=== PATIENT | male | born 1995 | race African-American/Black ===

== ENCOUNTER 2017-06-24 13:01 | Emergency (ER) | payer SELFPAY ==
[~2017-06-24] VITALS: Ht 170.2 cm; Wt 70.2 kg
[~2017-06-24 13:01] MED LIST: ALBU1AER9 INH; AMPH25CA PO; DEXT1CAP PO; IBUP-1050 PO
[2017-06-24 13:02] VITALS: Ht 170.2 cm; Wt 70.2 kg
[2017-06-24] MEDS ORDERED: ALBUT/IPRATROP 3MG/0.5MG NEB 3 ML VIAL INH STA (13:13)
[2017-06-24] MEDS ORDERED: ALBUTEROL HFA 8 GM INHALER INH STA (13:13)
[2017-06-24] MEDS ORDERED: AZITHROMYCIN 250 MG TAB PO STA (13:32)
[2017-06-24] MEDS ORDERED: AZIT-60 PO ×2 (13:34→14:58)
--- NOTE | 2017-06-24 13:36 | EMERGENCY ROOM VISIT NOTE ---
History First contact with patient: 13:06 Chief Complaint: COUGH Stated Complaint: BRONCHITIS SYMPTOMS Nursing Triage Summary: Pt believes he has bronchitis, deep cough, brownish/yellow mucus x 2 weeks. History of Present Illness The patient is a 22 year old male who presents to the Emergency Room with complaints of "bronchitis symptoms". The patient states that the past 2 weeks he has had a stuffy nose, cough postnasal drip and yellow mucus from the cough. He states that last night it was difficult breathing/sleeping secondary to his cough. He states that it is now yellow/brown mucus. He has a history of asthma. He denies any history of heart attack or blood clots. He notes that he quit smoking in the past. He denies any leg swelling, hemoptysis, recent trauma or surgery, prior PE or DVT, or hormone use. Review of Systems A complete 6-point Review of Systems was discussed with the patient, with pertinent positives and negatives listed in the History of Present Illness. All remaining Review of Systems questions can be considered negative unless otherwise specified. Past Medical/Surgical History Medical Problems: (1) Asthma (2) Attention deficit hyperactivity disorder (3) Mononucleosis Family History Diabetes mellitus FH: cancer Seizures Social History Smoking Status: Former Smoker Alcohol Use: none Marital Status: single Housing Status: lives with family Occupation Status: employed, student Current/Historical Medications Scheduled Albuterol Hfa (Ventolin Hfa), 1-2 PUFFS INH Q6H Amphetamine-Dextroamphetamine 25MG (Adderall Xr 25MG), 25 MG PO DAILY Azithromycin (Zithromax), 250 MG PO DAILY Azithromycin (Zithromax), 250 MG PO DAILY Scheduled PRN Albuterol Sulfate (Proventil Hfa), 2 PUFFS INH Q4H PRN for SOB/Wheezing Xvevvwghgfsbnkhh-Ipsyuaitwv-Zq (Nite-Time Cold/Flu), 2 CAP PO HS PRN for Cough Ibuprofen (Advil), 400 MG PO BID PRN for Pain Physical Exam Vital Signs Date Time Temp Pulse Resp B/P (MAP) Pulse Ox O2 Delivery O2 Flow Rate FiO2 06/24/17 14:23 36.7 95 18 122/82 97 06/24/17 13:04 97 Room Air 06/24/17 13:02 36.7 95 18 115/78 97 Room Air Physical Exam VITAL SIGNS - Vital signs and nursing notes were reviewed. Stable. Afebrile, normotensive, non-tachycardic and is saturating well on room air at 97%. GENERAL -22-year-old male appearing his stated age who is in no acute distress. Communicates well with provider and answers questions appropriately. SKIN - Without rashes. No petechial rashes. HEAD - NC/AT. EYES -Sclera anicteric. EARS - No deformities of external structures noted on gross examination bilaterally. No pain elicited with palpation of the tragus bilaterally. External auditory canals without discharge or otorrhea. Tympanic membranes pearly cao without retraction or bulging. No fluid or purulent material visualized behind the TM. Handle of malleus, umbo, cone of light, pars tensa/ flaccid all easily visualized. NOSE - Midline and without cyanosis. No epistaxis or purulent drainage noted. MOUTH/OROPHARYNX - Without perioral cyanosis. Buccal mucosa pink and moist and without leukoplakia. Tongue midline with equal elevation of palate bilaterally. No tonsillar hypertrophy, erythema, or exudates noted. Fair dentition noted. NECK - Neck with FROM. No meningismus. LUNGS - Chest wall symmetric without accessory muscle use, intercostals retractions, or central cyanosis. Normal vesicular breath sounds CTA B/L. No wheezes, rales, or rhonchi appreciated. CARDIAC - RRR with S1/S2. No murmur, rubs, or gallops appreciated. Medical Decision & Procedures Medications Administered Medications (Trade) Dose Ordered Sig/Sd Route Start Time Stop Time Status Last Admin Dose Admin Albuterol/ Ipratropium (Duoneb) 3 ml NOW STAT INH 06/24/17 13:13 06/24/17 13:14 DC 06/24/17 13:44 3 ML Albuterol (Ventolin Hfa Inhaler) 1 puffs NOW STAT INH 06/24/17 13:13 06/24/17 13:14 DC 06/24/17 13:45 1 PUFFS Azithromycin (Zithromax Tab) 500 mg NOW STAT PO 06/24/17 13:32 06/24/17 13:33 DC 06/24/17 13:44 500 MG Medical Decision Patient was seen and evaluated as above. He presents to us today with symptoms of a viral URI. He is well on exam. He is PERC rule negative. I do not suspect NV or PE. I offered a chest x-ray to evaluate for pneumonia and he declined. He is concerned about the cost of today's visit. He was given a DuoNeb and notes that he was able to cough up more of the sputum. Vital signs are stable. I believe he likely has what initially started as a viral bronchitis over due to its duration will this time initiated antibiotics. He is also pressured by his workplace to be on antibiotics that he may return to work to fill his employment. At this time I will provide him with azithromycin , as well as an albuterol inhaler. He was educated upon management, educated upon use, had questions prior to discharge, and was discharged home in good condition. In evaluation treatment this patient following differential diagnoses were entertained: Viral bronchitis, bacterial bronchitis, NV, PE, among others. Impression Primary Impression: Cough Additional Impression: Bronchitis Departure Information Dispostion Home / Self-Care Condition GOOD Prescriptions Azithromycin (ZITHROMAX) 250 Mg Tab 250 MG PO DAILY, #4 TAB Prov: Pierre Mirza PA-C 06/24/17 Albuterol Hfa (VENTOLIN HFA) 200 Puffs/52687 Mcg Aers 1-2 PUFFS INH Q6H, #1 INHALER Prov: Pierre Mirza PA-C 06/24/17 Referrals No Doctor, Assigned (PCP) Patient Instructions ED Bronchitis Asthmatic, My [facility] Additional Instructions You were seen in the emergency department for your cough and congestion. You were prescribed Azithromycin to be taken every day for 4 more days, beginning tomorrow at 2 pm. This is an antibiotic. All antibiotics have the potential to cause diarrhea. Stop this medication and contact a medical provider if you were to develop any significant adverse side effects including: wheezing, shortness of breath, passing out, vomiting, or a diffuse rash. Always take antibiotics as directed and COMPLETE the ENTIRE course regardless of the improvement of your symptoms. I encourage using albuterol inhaler. 1-2 puffs every 4-6 hours as needed. For pain and fever control, you can use the following cyoo-xvn-sjsklcr medicines (if >12 yo): - Regular strength (325mg/tab) Tylenol (acetaminophen) 2 tabs every 4-6 hours as needed. Do not exceed 12 tablets in a 24 hour period. Avoid taking more than 3 grams (3000 mg) of Tylenol per day. This includes any other sources of acetaminophen you may take on a regular basis. - Regular strength (200 mg/tab) Advil (ibuprofen) 1-2 tabs every 4-6 hours as needed. Do not exceed a dose of 3200 mg per day. - For best results, alternate dosing of Tylenol and Advil. In addition to your prescribed medications, you can also use the following home remedies: Warm drinks to help soothe the throat. And warm compresses to chest. Please return with any new/concerning symptoms. Follow up with your primary care provider in 2-3 days from today's emergency department visit. Problem Qualifiers
[2017-06-24] MEDS ORDERED: ALBUAER INH (13:40)
[2017-06-24] MEDS ORDERED: AZIT250T PO (14:05)
[2017-06-24] MEDS ORDERED: VNTHFA/IN INH (14:11)
[2017-06-24 14:23] VITALS: BP 122/82; PULSE 95; TEMP 36.7; O2SAT 97
== END 2017-06-24 14:25 | disposition home or self-care (01) ==
LOC: C.EDB 13:01
DX: J40 Bronchitis, not specified as acute or chronic (principal); Z87.891 Personal history of nicotine dependence; F90.9 Attention-deficit hyperactivity disorder, unspecified type; Z83.3 Family history of diabetes mellitus; Z80.9 Family history of malignant neoplasm, unspecified; Z82.0 Family history of epilepsy and other diseases of the nervous system; Z79.899 Other long term (current) drug therapy

== ENCOUNTER 2017-10-08 13:42 | Emergency (ER) | payer SELFPAY ==
[~2017-10-08] VITALS: Ht 170.2 cm; Wt 68.2 kg
[~2017-10-08 13:42] MED LIST changes: -ALBU1AER9 INH; +ALBUAER INH; +AZIT250T PO; -IBUP-1050 PO; +VNTHFA/IN INH
[2017-10-08 13:51] VITALS: TEMP 36.9; Ht 170.2 cm; Wt 68.2 kg
[2017-10-08] MEDS ORDERED: IBUP-1050 PO (14:05)
--- NOTE | 2017-10-08 14:11 | EMERGENCY ROOM VISIT NOTE ---
History Report prepared by Vale: Kameron Coronel Under the Supervision of: Dr. Jimi Moseley M.D. First contact with patient: 13:53 Chief Complaint: SHORTNESS OF BREATH Stated Complaint: HARD TO BREATHE, BACK SPASM/PAIN Nursing Triage Summary: Pt states, "I woke up and I couldn't sit up. I had pain under my right shoulder blade and it's hard to breathe. It's been bothering me for the past 2-3 days. It hurts to stand. I have a cold and it's in my throat. It hurts so bad when I cough." Denies lightheaded or leg pain. History of Present Illness The patient is a 22 year old male who presents to the Emergency Room with complaints of constant back pain for the past three days that is worse with a deep breath. He notes that he coughed this morning, and the pain shot down his back, and he states that it is a little bit difficult to breathe due to the pain. The patient states that he has been working out lifting weights recently and thinks this may have caused the pain, though he states that he has not had any traumas. He denies any abdominal pain, recent long travels, hemoptysis, and steroid use. The patient states that he has been coughing up yellow mucous. He denies any other medical problems, and he does not take any medications other than ibuprofen which has helped a little bit. Source of History: patient Onset: three days ago Position: back Timing: constant Modifying Factors (Worsening): breathing, other (coughing) Associated Symptoms: + cough, No abdominal pain Review of Systems See HPI for pertinent positives and negatives. A total of ten systems were reviewed and were otherwise negative. Past Medical & Surgical Medical Problems: (1) Asthma (2) Attention deficit hyperactivity disorder (3) Mononucleosis Family History Diabetes mellitus FH: cancer Seizures Social History Smoking Status: Current Every Day Smoker Alcohol Use: none Marital Status: single Housing Status: lives with family Occupation Status: employed, student Current/Historical Medications Scheduled Cyclobenzaprine Hcl (Flexeril), 5 MG PO TID Scheduled PRN Ibuprofen (Advil), 400 MG PO UD PRN for Pain Ibuprofen Tab (Motrin), 800 MG PO Q8H PRN for Pain Allergies Coded Allergies: Cat Dander (Verified Allergy, Unknown, unk, 06/24/17) Dog Dander (Verified Allergy, Unknown, unk, 06/24/17) Dust Mite Extract (Verified Allergy, Unknown, unk, 06/24/17) Horse Dander (Verified Allergy, Unknown, unk, 06/24/17) Molds and Smuts (Verified Allergy, Unknown, unk, 06/24/17) POLLEN (Verified Allergy, Unknown, unk, 06/24/17) Uncoded Allergies: NKDA (Allergy, Mild, 06/04/07) TREES (Allergy, Unknown, unk, 11/01/13) Physical Exam Vital Signs Date Time Temp Pulse Resp B/P (MAP) Pulse Ox O2 Delivery O2 Flow Rate FiO2 10/08/17 15:27 90 17 114/77 99 Room Air 10/08/17 13:51 36.9 106 20 119/75 98 Room Air Physical Exam Physical Exam GENERAL: He is oriented to person, place, and time. He appears well-developed and well-nourished. He does not appear distressed. ____ HENT: Exam performed. Head: Normocephalic and atraumatic. Right Ear: External ear normal. No mastoid tenderness. Left Ear: External ear normal. No mastoid tenderness. Mouth/Throat: The oropharynx is clear and moist. No trismus in the jaw. No dental abscesses or uvula swelling. No oropharyngeal exudate or tonsillar abscesses. ____ EYES: Conjunctivae and EOM are normal. Pupils are equal, round, and reactive to light. Right eye exhibits no discharge. Left eye exhibits no discharge. No scleral icterus. ____ NECK: Normal range of motion. Neck supple. No JVD present. No spinous process tenderness present. No carotid bruit present. No rigidity. No tracheal deviation and normal range of motion present. No Brudzinski's sign and no Kernig 's sign noted. ____ CV: Normal rate, regular rhythm, normal heart sounds and intact distal pulses. There is no peripheral edema. Palpable radial pulses bue. ____ PULM/CHEST: Effort normal and breath sounds normal. No respiratory distress. No stridor. He has no wheezes. He has no rales. Chest Wall: He exhibits no tenderness. ____ ABD: The abdomen is soft. Bowel sounds are normal. He has no distension. No mass is present. There is no tenderness. There is no rebound, no guarding, no Dudley's sign and no tenderness at McBurney's point. Rovsig negative MUSC/SKEL: Pain reproducing the chief complaint with pain on palpation throughout the paraspinal thoracic muscles. No C, T, or L spine tenderness. Normal range of motion. There is no peripheral edema, tenderness or deformity. _ LYMPH: No cervical adenopathy. ____ NEURO: He is alert and oriented to person, place, and time. He has normal strength. No cranial nerve deficit or sensory deficit. Coordination and gait normal. GCS eye subscore is 4. GCS verbal subscore is 5. GCS motor subscore is 6. Cerebellar tests wnl. ____ SKIN: Skin is warm and dry. He is not diaphoretic. ____ PSYCH: He has a normal mood and affect. His behavior is normal. Judgment and thought content normal. ____ Medical Decision & Procedures ER Provider Diagnostic Interpretation: Radiology results as stated below per my review and radiologist interpretation: CHEST 2 VIEWS ROUTINE CLINICAL HISTORY: Inspiratory chest pain COMPARISON STUDY: November 27, 2014 FINDINGS: The cardiac and mediastinal contours are normal. There is no evidence of focal pulmonary consolidation. There is no evidence of failure. No pleural effusions are visualized.[ IMPRESSION: No active disease in the chest. Electronically signed by: Kevin Onofre M.D. 10/08/2017 2:16 PM Dictated Date/Time: 10/08/2017 2:15 PM Medications Administered Medications (Trade) Dose Ordered Sig/Sd Route Start Time Stop Time Status Last Admin Dose Admin Cyclobenzaprine HCl (Flexeril Tab) 5 mg NOW STAT PO 10/08/17 15:17 10/08/17 15:20 DC 10/08/17 15:27 5 MG Ibuprofen (Motrin Tab) 600 mg NOW STAT PO 10/08/17 15:17 10/08/17 15:20 DC 10/08/17 15:27 600 MG ED Course 1353: The patient was evaluated in room A10. A complete history and physical exam was performed. 1511: VSS. Imaging is with normal limits. No PE risk factors. Based off the HPI and exam it was consistent with musculoskeletal back strain. He will be discharged with an analgesic and muscle relaxer. He states that he is not driving home, and his friend at the bedside will drive him. DISCHARGE - Plan of care discussed with patient and questions answered. The patient was given both verbal and printed discharge instructions. The patient verbalized understanding and ability to comply. The patient is to seek outpatient follow up as noted in the discharge instructions. The patient verbalized understanding and ability to comply. The patient is discharged in stable condition. The patient was instructed to return for worsening symptoms. 1517: Motrin 600mg PO and Flexeril 5mg PO Medical Decision VSS. Imaging is with normal limits. No PE risk factors. Based off the HPI and exam it was consistent with musculoskeletal back strain. He will be discharged with an analgesic and muscle relaxer. He states that he is not driving home, and his friend at the bedside will drive him. DISCHARGE - Plan of care discussed with patient and questions answered. The patient was given both verbal and printed discharge instructions. The patient verbalized understanding and ability to comply. The patient is to seek outpatient follow up as noted in the discharge instructions. The patient verbalized understanding and ability to comply. The patient is discharged in stable condition. The patient was instructed to return for worsening symptoms. Medication Reconcilliation Current Medication List: was personally reviewed by me Blood Pressure Screening Patient's blood pressure: Normal blood pressure Impression Primary Impression: Muscle strain Scribe Attestation The scribe's documentation has been prepared under my direction and personally reviewed by me in its entirety. I confirm that the note above accurately reflects all work, treatment, procedures, and medical decision making performed by me. The chart was completed utilizing [employer] Speech voice recognition software. Grammatical errors, random word insertions, pronoun errors, and incomplete sentences are an occasional consequence of this system due to software limitations, ambient noise, and hardware issues. Any formal questions or concerns about the content, text, or information contained within the body of this dictation should be directly addressed to the physician for clarification. Departure Information Dispostion Home / Self-Care Prescriptions Cyclobenzaprine Hcl (FLEXERIL) 5 Mg Tab 5 MG PO TID for Pain for 7 Days, #21 TAB PRN Prov: Jimi Moseley M.D. 10/08/17 Ibuprofen Tab (MOTRIN) 800 Mg Tab 800 MG PO Q8H Y for Pain, #30 TAB Prov: Jimi Moseley M.D. 10/08/17 Referrals No Doctor, Assigned (PCP) Forms HOME CARE DOCUMENTATION FORM, IMPORTANT VISIT INFORMATION Patient Instructions [facility]
--- NOTE | 2017-10-08 14:17 | DIAGNOSTIC IMAGING REPORT ---
CHEST 2 VIEWS ROUTINE CLINICAL HISTORY: Inspiratory chest pain COMPARISON STUDY: November 27, 2014 FINDINGS: The cardiac and mediastinal contours are normal. There is no evidence of focal pulmonary consolidation. There is no evidence of failure. No pleural effusions are visualized.[ IMPRESSION: No active disease in the chest. Electronically signed by: Kevin Onofre M.D. 10/08/2017 2:16 PM Dictated Date/Time: 10/08/2017 2:15 PM
[2017-10-08] MEDS ORDERED: IBUP-1451 PO (15:16)
[2017-10-08] MEDS ORDERED: CYCLOBENZAPRINE HCL 5 MG TAB PO STA (15:17)
[2017-10-08] MEDS ORDERED: IBUPROFEN 600 MG TAB PO STA (15:17)
[2017-10-08] MEDS ORDERED: CYCL5TAB PO (15:17)
[2017-10-08 15:27] VITALS: BP 114/77; PULSE 90; O2SAT 99
== END 2017-10-08 15:38 | disposition home or self-care (01) ==
LOC: C.EDB 13:44 → C.EDA 15:38
DX: S39.012A Strain of muscle, fascia and tendon of lower back, initial encounter (principal); X58.XXXA Exposure to other specified factors, initial encounter; J45.909 Unspecified asthma, uncomplicated; F90.9 Attention-deficit hyperactivity disorder, unspecified type; F17.210 Nicotine dependence, cigarettes, uncomplicated; Z83.3 Family history of diabetes mellitus; Z80.9 Family history of malignant neoplasm, unspecified; Z82.0 Family history of epilepsy and other diseases of the nervous system; Z91.048 Other nonmedicinal substance allergy status

== ENCOUNTER 2018-03-08 03:43 | Emergency (ER) | payer OTHER ==
[~2018-03-08] VITALS: Ht 170.2 cm; Wt 67.4 kg
[~2018-03-08 03:43] MED LIST changes: -ALBUAER INH; -AMPH25CA PO; -AZIT250T PO; -DEXT1CAP PO; +IBUP-1050 PO; +IBUP-1451 PO; -VNTHFA/IN INH
[2018-03-08 03:44] VITALS: TEMP 36.8; Ht 170.2 cm; Wt 67.4 kg
[2018-03-08] MEDS ORDERED: LIDOCAINE 1% BUFFERED INJ 20 ML VIAL INFIL ONE (04:15)
[2018-03-08 05:04] VITALS: BP 122/75; PULSE 100; O2SAT 97
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
== END 2018-03-08 05:05 | disposition home or self-care (01) ==
LOC: C.EDB 03:44
DX: S01.511A Laceration without foreign body of lip, initial encounter (principal); S02.5XXA Fracture of tooth (traumatic), initial encounter for closed fracture; Y04.0XXA Assault by unarmed brawl or fight, initial encounter; F17.200 Nicotine dependence, unspecified, uncomplicated

== ENCOUNTER 2024-05-31 08:00 | Observation (INO) ==
[2024-05-31 08:53] LABS: Basophils # (auto) 0.05 K/uL (0.00-0.20); Basophils % (auto) 0.7 %; Eosinophils # (auto) 0.12 K/uL (0.00-0.50); Eosinophils % (auto) 1.8 %; Hematocrit (blood only) 43.5 % (42.0-52.0); Hemoglobin 15.3 g/dl (14.0-18.0); Immature Granulocytes # (auto) 0.01 K/uL (0.01-0.20); Immature Granulocytes % (auto) 0.1 %; Lymphocytes # (auto) 2.15 K/uL (1.20-3.40); Lymphocytes % (auto) 31.6 %; Mean Corpuscular Hemoglobin 32.8 pg (25.0-34.0); Mean Corpuscular Hgb Conc 35.2 g/dL (32.0-36.0); Mean Corpuscular Volume 93.1 fL (80.0-100.0); Mean Platelet Volume 9.1 fL (9.4-12.4); Monocytes # (auto) 0.84 K/uL (0.11-0.59); Monocytes % (auto) 12.3 %; Neutrophils # (auto) 3.64 K/uL (1.40-6.50); Neutrophils % (auto) 53.5 %; Platelet Count 274 K/uL (130-400); RDW Standard Deviation 44.5 fL (36.4-46.3); Red Blood Count 4.67 M/uL (4.70-6.10); White Blood Count 6.81 K/ul (4.8-10.8)
[2024-05-31 09:05] LABS: BUN Creatinine Ratio 6.6 (10-20); Bilirubin Direct 0.2 mg/dl (0-0.2); Bilirubin,Total 0.7 mg/dl (0.2-1.0); Calcium 9.7 mg/dl (8.6-10.3); Creatinine Clr Calc Pharmacy 130.6 ml/min; Potassium 3.2 mmol/L (3.5-5.1); Total Protein 8.3 gm/dl (6.0-8.3)
[2024-05-31] MEDS: diazePAM 5 MG/ML 10ML VIAL IV STA (09:24)
--- NOTE | 2024-05-31 09:39 | Emergency Department Note ---
Impression & Plan Alcohol withdrawal, Hypokalemia ED Provider Note NAME: MIGUEL ENGEL AGE: 29 SEX: M : 1995 ARRIVES VIA: Ambulance INFORMANT: Patient, ED PROVIDER(S): North Finn MD CHIEF COMPLAINT: Alcohol withdrawal HPI: This is an 29-year-old male present for possible alcohol withdrawal. Patient notes that he drinks daily about one third of a bottle of vodka with numerous beers throughout the day. He is on this for multiple years at a time. He has never had any alcohol withdrawal seizures. Does note that he gets shaky, nauseous although he does stop. He notes he feels very unwell at this time. He reports no chest pain, fever or chills. ROS: See above HPI for pertinent positives & negatives. A total of 10 systems reviewed and were otherwise negative. PAST MEDICAL HISTORY: See Below PAST SURGICAL HISTORY: See Below FAMILY HISTORY: See Below SOCIAL HISTORY: See Below HOME MEDICATIONS: See Below ALLERGIES: See Below VITALS: See Below PHYSICAL EXAMINATION: General: resting comfortably in no acute distress, tremulous Head: Normocephalic and atraumatic Eyes: Normal inspection, extraocular muscles intact Ear, nose, throat: Normal external exam Neck: Normal range of motion Respiratory: lungs clear to auscultation bilaterally Cardiovascular: Regular rate/rhythm, no murmur GI: soft, nontender, no guarding or rebound Extremities: nontender, moves all extremities Neuro: The patient awake and alert, appropriately conversive, no focal deficits, symmetric faces Skin: Warm, dry, and intact MEDICAL DECISION MAKING: This is a 29-year-old male presenting for possible alcohol withdrawal. We do screening blood work, patient tachycardic initially to the 130s. Now 100s. Will give Valium. -Patient alcohol level is elevated at 63. Otherwise hypokalemia is noted with normal blood work. His transaminitis is noted in alcoholic pattern. -Patient is tremulous, mildly tachycardic still. Will require admission. Detox -Patient is currently comfortable for admission. Admit under Dr. Melgar Differential diagnosis: Alcohol withdrawal, anxiety, delirium tremens, alcoholic seizure ER treatment provided: Diagnostics interpreted by me: ECG: ECG independently interpreted by me with normal sinus rhythm, rate of 96, normal axis, normal MS, normal QRS, normal QTc, no ST segment elevations consistent with STEMI criteria Cardiac Monitoring: An order was placed for continuous cardiac monitoring. The monitor shows a rate of with rhythm. Laboratory studies: As stated above and show below. Imaging studies: See below. Past Med/Surg History Problem List (Updated 05/31/24 @ 15:43 by North Finn MD) Hypokalemia (Acute) Alcohol withdrawal (Acute) Abnormal LFTs Medical History (Updated 05/31/24 @ 15:43 by North Finn MD) Alcohol use disorder Asthma Surgical History No significant past surgical history Family History Other Epilepsy Stroke Social History (Updated 05/31/24 @ 12:43 by Calista Jones PA-C) Smoking Status: Current every day smoker Tobacco Type: E-cigarettes / Vaping Second Hand Exposure: Yes; Do You Dip or Chew Tobacco: No; Tobacco Cessation Education Requested by Patient: No Hx Alcohol Use: Yes Alcohol type: beer and hard liquor Alcohol Intake Frequency: 4 or More x per/Week Hx Substance Use: Yes Non-Prescribed Medications: Marijuana Substance Use Type Other:: medical marijuana Preferred Language: Irish Communication Ability: Effective Diving Fisher Required: No Beliefs That Will Affect Care: None marital status: Single Current Living Situation: Parent Current Living Situation Comment: lives with mother current occupational status: employed Other Information That Helps Us Care for You: No Feels Safe at Home: Yes Safety Concerns: Feels Safe At This Time Assistive Devices: Glasses Allergies Allergies Allergy/AdvReac Type Severity Reaction Status Date / Time cat dander Allergy Unknown unk Verified 11/14/18 05:16 dog dander Allergy Unknown unk Verified 11/14/18 05:16 horse dander Allergy Unknown unk Verified 11/14/18 05:16 mold Allergy Unknown unk Verified 11/14/18 05:16 pollen extracts Allergy Unknown unk Verified 11/14/18 05:16 [id number] Allergy Mild Unknown Uncoded 11/14/18 05:16 Dust Mite Extract Allergy Unknown unk Uncoded 11/14/18 05:16 TREES Allergy Unknown unk Uncoded 11/14/18 05:16 Home Meds Home Medications Medication Instructions Recorded Confirmed clonidine HCl 0.1 mg tablet 0.1 mg PO TID PRN anxiety/insomina 05/31/24 05/31/24 naltrexone 50 mg tablet 50 mg PO DAILY 05/31/24 05/31/24 Previous Rx's Medication Instructions Recorded ondansetron 4 mg disintegrating 4 mg PO Q6H PRN nausea and 02/14/19 tablet vomiting #10 tabs Results & Data (ED) Vital Signs Vital Signs - 24 hr 05/31/24 08:01 05/31/24 08:24 05/31/24 08:44 Temperature 36.8 C Temperature Source Oral Pulse Rate 87 100 H 132 H Pulse Rate from SpO2 Sensor 95 H Respiratory Rate 16 16 Respiratory Effort / Characteristics Non-Labored Spontaneous Respiratory Depth Normal Blood Pressure 137/98 115/70 Blood Pressure Mean 111 85 Pulse Oximetry 99 98 Oxygen Delivery Method Room Air Oxygen Flow Rate Sepsis Recent Fever Within 48 Hours No Sepsis New/Unexplained Change in Mental Status No Sepsis Action Taken by Nursing No Action Required 05/31/24 08:45 05/31/24 08:57 05/31/24 09:03 Temperature Temperature Source Pulse Rate 99 H 86 80 Pulse Rate from SpO2 Sensor 99 H 87 83 Respiratory Rate 21 14 13 Respiratory Effort / Characteristics Respiratory Depth Blood Pressure 130/81 Blood Pressure Mean 97 Pulse Oximetry 98 97 97 Oxygen Delivery Method Nasal Cannula Oxygen Flow Rate 2 Sepsis Recent Fever Within 48 Hours Sepsis New/Unexplained Change in Mental Status Sepsis Action Taken by Nursing 05/31/24 10:00 Temperature Temperature Source Pulse Rate 93 H Pulse Rate from SpO2 Sensor Respiratory Rate 18 Respiratory Effort / Characteristics Respiratory Depth Blood Pressure 120/85 Blood Pressure Mean 98 Pulse Oximetry 99 Oxygen Delivery Method Nasal Cannula Oxygen Flow Rate 2 Sepsis Recent Fever Within 48 Hours Sepsis New/Unexplained Change in Mental Status Sepsis Action Taken by Nursing Laboratory Data 05/31/24 08:13 05/31/24 08:13 Lab Results 05/31/24 Range/Units 08:13 WBC 6.81 (4.8-10.8) K/ul RBC 4.67 L (4.70-6.10) M/uL Hgb 15.3 (14.0-18.0) g/dl Hct 43.5 (42.0-52.0) % MCV 93.1 (80.0-100.0) fL MCH 32.8 (25.0-34.0) pg MCHC 35.2 (32.0-36.0) g/dL RDW Std Deviation 44.5 (36.4-46.3) fL RDW Coeff of Elizabeth 13.0 (11.5-14.5) % Plt Count 274 (130-400) K/uL MPV 9.1 L (9.4-12.4) fL Immature Gran % (Auto) 0.1 % Neut % (Auto) 53.5 % Lymph % (Auto) 31.6 % [place] % (Auto) 12.3 % Eos % (Auto) 1.8 % Baso % (Auto) 0.7 % Neut # (Auto) 3.64 (1.40-6.50) K/uL Lymph # (Auto) 2.15 (1.20-3.40) K/uL [place] # (Auto) 0.84 H (0.11-0.59) K/uL Eos # (Auto) 0.12 (0.00-0.50) K/uL Baso # (Auto) 0.05 (0.00-0.20) K/uL Immature Gran # (Auto) 0.01 (0.01-0.20) K/uL Sodium 144 (136-145) mmol/L Potassium 3.2 L (3.5-5.1) mmol/L Chloride 100 (98-107) mmol/L Carbon Dioxide 21 (21-32) mmol/L Anion Gap 23 H (3-11) BUN 5 L (6-23) mg/dl Creatinine 0.76 (0.6-1.4) mg/dl Est Cr Clr Drug Dosing 130.6 ml/min eGFR 125.56 BUN/Creatinine Ratio 6.6 L (10-20) Glucose 94 (70-99(Fasting)) mg/dl Calcium 9.7 (8.6-10.3) mg/dl Total Bilirubin 0.7 (0.2-1.0) mg/dl Direct Bilirubin 0.2 (0-0.2) mg/dl AST 283 H (13-39) U/L ALT 142 H (7-52) U/L Alkaline Phosphatase 79 (34-104) U/L Total Protein 8.3 (6.0-8.3) gm/dl Albumin 5.0 (3.4-5.0) gm/dl Lipase 30 (11-82) U/L Ethyl Alcohol mg/dL 66.3 H (<10.0) mg/dl Administered Medications Pantoprazole Sodium (Protonix) 40 mg in 10 mls @ 5 mls/min IV BID MERCEDES Stop: 06/30/24 12:59 Last Admin: 05/31/24 15:01 Dose: 5 mls/min Documented By: YUNG Lorazepam (Lorazepam 2 Mg/1 Ml Vial) 1 mg IV UD PRN; Protocol PRN Reason: EtOH Withdrawal AWSS Score 6,7 Stop: 06/30/24 11:32 Last Admin: 05/31/24 14:06 Dose: 1 mg Documented By: YUNG Lorazepam (Lorazepam 2 Mg/1 Ml Vial) 2 mg IV UD PRN; Protocol PRN Reason: EtOH Withdrawal AWSS Score 8+ Stop: 06/30/24 11:32 Last Admin: 05/31/24 12:38 Dose: 2 mg Documented By: DIMAS Discontinued Medications Diazepam (Diazepam 5 Mg/Ml 10ml Vial) 10 mg IV NOW STA Stop: 05/31/24 09:19 Last Admin: 05/31/24 09:24 Dose: 10 mg Documented By: NAILA Gabapentin (Gabapentin 600 Mg Tab) 1,200 mg PO NOW ONE Stop: 05/31/24 11:34 Last Admin: 05/31/24 11:59 Dose: 1,200 mg Documented By: DIMAS Multivitamins 10 ml/ Thiamine HCl 100 mg/ Folic Acid 1 mg/Sodium Chloride 1,011.2 mls @ 999 mls/hr IV .Q1H1M ONE Stop: 05/31/24 13:15 Last Admin: 05/31/24 12:38 Dose: 999 mls/hr Documented By: DIMAS Ondansetron HCl (Ondansetron Inj 2 Mg/Ml 2 Ml Vial) Confirm Administered Dose 4 mg .ROUTE .STK-MED ONE Stop: 05/31/24 11:52 Last Admin: 05/31/24 11:55 Dose: 4 mg Documented By: DIMAS Potassium Chloride (Potassium Chloride Crtab 20 Meq Tabcr) 40 meq PO NOW STA Stop: 05/31/24 13:02 Last Admin: 05/31/24 15:01 Dose: 40 meq Documented By: YUNG Discharge Plan Visit Data Chief Complaint: Vomiting Stated Complaint: NAUSEA, VOMITING, PANIC ATTACK, ALCOHOL WITHDRAWL ED Provider: North Finn Discharge Problem: Alcohol withdrawal, Hypokalemia Patient Disposition: Admitted As Inpatient Discharge Instructions Interventions: ED Discharge Assessment Last Done: 05/31/24 13:22
--- NOTE | 2024-05-31 11:25 | Electrocardiogram Report ---
Test Reason : Blood Pressure : */* mmHG Vent. Rate : 96 BPM Atrial Rate : 96 BPM P-R Int : 134 ms QRS Dur : 90 ms QT Int : 378 ms P-R-T Axes : 65 65 46 degrees QTcB Int : 477 ms Normal sinus rhythm Normal ECG No previous ECGs available Confirmed by Real Reid ([id number]) on 05/31/2024 11:24:22 AM Referred By: REFERRED SELF Confirmed By: Real Reid
[2024-05-31] MEDS ORDERED: LORazepam 2 MG/1 ML VIAL IV PRN (11:33)
[2024-05-31] MEDS ORDERED: GABAPENTIN 1200MG ALCOHOL WITHDRAWAL LOAD PO STA (11:33)
[2024-05-31] MEDS ORDERED: Ativan IV Alcohol Withdrawal--Active Protocol IV PRN (11:33)
--- NOTE | 2024-05-31 11:36 | History & Physical Report ---
Date of Service May 31, 2024 Assessment & Plan (1) Alcohol withdrawal: (2) Alcohol use disorder: Plan: This is a 29-year-old male with PMH of alcohol use disorder and asthma who presents from home with worsening tremors and anxiety in the setting of alcohol withdrawal and attempt to detox. Presenting with worsening withdrawal symptoms - N/V, tremulousness after starting Naltrexone, clonidine PRN from outside clinic last week for detox attempt Endorsing years of alcohol use, last drink at 2100 last night. Denies history of seizures or DTs Etoh level 66.3 mg/dl on arrival Given Diazepam 10mg IV in ED, still with recurrent vomiting, unable to tolerate PO meds at this time Ordered antiemetics, Banana bag for fluid resuscitation, gabapentin taper and PRN IV Ativan for active withdrawal AWSS withdrawal protocol Seizure precautions IV protonix given recurrent vomiting PO thiamine, folic acid, MV in AM Monitor LFTs Appreciate CM coordinating rehab (3) Abnormal LFTs: Plan: Labs reviewed - AST 283, ALT 142 in setting of years of alcohol abuse T bili within range at 0.7 Adding PT/INR for further eval of liver function Abd benign- consider further imaging if labs worsen, develops pain Daily CMP, PT/INR while admitted (4) Hypokalemia: Plan: K 3.2. Replaced (5) Asthma: Plan: Stable, not on home inhalers DVT Ppx: teds, early ambulation Code status: FULL PCP: Needs to establish at time of discharge (moved to [place] 2 weeks ago) Dispo: Admitted to PCU Calling patient's mom for update per patient request. Patient seen in collaboration with Dr. Melgar. Please see addendum. I spent a total of 75 minutes coordinating, documenting, and providing care for this patient excluding time spent in the performance of separately billed services. History of Present Illness Chief Complaint: etoh withdrawal Primary Care Provider: NO PCP This is a 29-year-old male with PMH of alcohol use disorder and asthma who presents from home with worsening tremors and anxiety. Has been drinking every day for years anywhere from 6 beer to approximately a pint of vodka daily. Last drink was last night around 9 pm. Recetly moved back from [facility] with intention to get sober. Was seen at a clinic near the [facility] and prescribed natrexone, clonidine PRN and zofran last week with instruction to taper down alcohol use slowly. Patient has been nauseous and unable to keep pills down to home with recurrent emesis. Denies hematemesis. Also having worsening anxiety, feeling of "pins and needles" in hands and legs which has improved since arrival. Also endorses bruising on megs Endorses intermittent marijuana use. Staying with family who is supportive of sobriety. No F/C, lightheadedness, CP, SOB, abd pain, dysuria. Had diarrhea 1-2x prior to arrival. Allergies Allergy/AdvReac Type Severity Reaction Status Date / Time cat dander Allergy Unknown unk Verified 11/14/18 05:16 dog dander Allergy Unknown unk Verified 11/14/18 05:16 horse dander Allergy Unknown unk Verified 11/14/18 05:16 mold Allergy Unknown unk Verified 11/14/18 05:16 pollen extracts Allergy Unknown unk Verified 11/14/18 05:16 [id number] Allergy Mild Unknown Uncoded 11/14/18 05:16 Dust Mite Extract Allergy Unknown unk Uncoded 11/14/18 05:16 TREES Allergy Unknown unk Uncoded 11/14/18 05:16 Home Medications Medication Instructions Recorded Confirmed Type ondansetron 4 mg disintegrating 4 mg PO Q6H PRN nausea and 02/14/19 05/31/24 Rx tablet vomiting #10 tabs clonidine HCl 0.1 mg tablet 0.1 mg PO TID PRN anxiety/insomina 05/31/24 05/31/24 History naltrexone 50 mg tablet 50 mg PO DAILY 05/31/24 05/31/24 History Past Med/Surg History Problem List (Updated 05/31/24 @ 13:00 by Calista Jones PA-C) Hypokalemia Alcohol withdrawal Abnormal LFTs Medical History (Updated 05/31/24 @ 13:00 by Calista Jones PA-C) Alcohol use disorder Asthma Surgical History No significant past surgical history Family History Other Epilepsy Stroke Social History (Updated 05/31/24 @ 12:43 by Calista Jones PA-C) Smoking Status: Never smoker Hx Alcohol Use: Yes Alcohol type: hard liquor Alcohol Intake Frequency: 4 or More x per/Week Hx Substance Use: Yes Non-Prescribed Medications: Marijuana marital status: Single Current Living Situation: Alone current occupational status: employed Feels Safe at Home: Yes Review of Systems Review of Systems: At least ten systems reviewed and negative except as noted in the HPI. Physical Exam Physical Exam: General Appearance: WD/WN, vitals as above, appears anxious, tremulous BUE Head: normocephalic, atraumatic Eyes: normal inspection, PERRL, conjunctivae normal, anicteric sclerae ENT: external ear and nose normal, oropharynx with dry mucous membranes Neck: normal visual inspection, trachea midline, no thyromegaly Respiratory: normal respiratory effort, lungs clear to auscultation, no wheeze, rales, rhonchi. No accessory muscle use Cardiovascular: tachycardic rate, regular rhythm, normal peripheral pulses, no BLE edema. Vessels: no JVD Chest: normal inspection of chest Abdomen/GI: normal bowel sounds, soft, nontender, no hepatosplenomegaly Extremities/Musculoskeletal: no cyanosis or clubbing, extremities motor strength 5/5 Neurologic: PERRL, EOMI, accommodation nl, no face palsy, no dysarthria, CN's II-XI intact bilaterally and moves all extremities Psychiatric: A+Ox3, anxious/agitated Skin: no rashes, normal color, warm/dry, +scattered bruising on legs Results & Data Results & Data Vital Signs (Past 12 Hours) Vital Signs Temp Pulse Resp BP Pulse Ox O2 Del Method O2 Flow Rate 05/31/24 10:00 93 H 18 120/85 99 Nasal Cannula 2 05/31/24 09:03 80 13 130/81 97 Nasal Cannula 2 05/31/24 08:57 86 14 97 05/31/24 08:45 99 H 21 98 05/31/24 08:44 132 H 05/31/24 08:24 100 H 16 115/70 98 05/31/24 08:01 36.8 C 87 16 137/98 99 Room Air Laboratory Results Short CBC 05/31/24 Range/Units 08:13 WBC 6.81 (4.8-10.8) K/ul Hgb 15.3 (14.0-18.0) g/dl Hct 43.5 (42.0-52.0) % Plt Count 274 (130-400) K/uL BMP 05/31/24 08:13 Sodium 144 Potassium 3.2 L Chloride 100 Carbon Dioxide 21 BUN 5 L Creatinine 0.76 Glucose 94 Calcium 9.7 Liver Function 05/31/24 Range/Units 08:13 Total Bilirubin 0.7 (0.2-1.0) mg/dl Direct Bilirubin 0.2 (0-0.2) mg/dl AST 283 H (13-39) U/L ALT 142 H (7-52) U/L Alkaline Phosphatase 79 (34-104) U/L Albumin 5.0 (3.4-5.0) gm/dl Code Status & VTE Plan VTE Prophylaxis Plan VTE Prophylaxis will be ordered: Yes Supervising Physician Co-Signing Physician Notes Attending addendum: The patient was seen and examined in emergency room 29-year-old male with chronic alcoholism was recently put on naltrexone and clonidine as needed for detox He continues to drink and Has been complaining of more tremors, nausea and vomiting and was brought into emergency room Still has nausea in the ER and vomited in front of us and denies any hallucinations On examination Lying in bed without any acute distress but looks very anxious Hemodynamically stable with a tachycardia of 106 Chest was clear to auscultate bilaterally Heart sounds S1-S2 normal without any murmur Abdomenbenign Extremitiesno edema SHOP ROUTER he is alert, awake and oriented x 3 Tremors noted with outstretched hands His admission labs and EKG noted Has abnormal LFTs likely secondary to chronic alcoholism Definitely has withdrawal symptoms from alcohol and he will be put on withdrawal protocol as per our hospital guideline Asthma seems to be controlled History of alcohol induced seizure so we will have to be seizure precaution Agree with assessment and plan as outlined above by Calista Jones PA-C and take the full response to the care in the hospital Dr. Ele Melgar
[2024-05-31] MEDS: ONDANSETRON INJ 2 MG/ML 2 ML VIAL ONE (11:55)
[2024-05-31] MEDS: GABAPENTIN 600 MG TAB PO ONE (11:59)
[2024-05-31] MEDS: LORazepam 2 MG/1 ML VIAL IV PRN ×2 (12:38→14:06)
[2024-05-31] MEDS: MULTI-VITAMIN INFUSION 10 ML, THIAMINE HCL 100 MG, FOLIC ACID 1 MG in SODIUM CHLORIDE 0... IV ONE (12:38)
[2024-05-31 13:06] LABS: Amphetamines+Metham, Urine Neg (Neg); Barbiturates, Urine Neg (Neg); Benzodiazepine, Urine Pos (Neg); Cocaine, Urine Neg (Neg); Fentanyl, Urine Neg (Neg); MDMA (Ecstacy), Urine Neg (Neg); Marijuana, Urine Neg (Neg); Methadone, Urine Neg (Neg); Opiate, Urine Neg (Neg); Phencyclidine, Urine Neg (Neg)
[2024-05-31] MEDS ORDERED: POLYETHYLENE (MIRALAX) 17 GM PACK PO PRN (13:37)
[2024-05-31] MEDS: POTASSIUM CHLORIDE CRTAB 20 MEQ TABCR PO STA (15:01)
[2024-05-31] MEDS: PANTOprazole 40 MG/10 ML SYR IV SCH (15:01)
[2024-05-31] MEDS: GABAPENTIN 600 MG TAB PO SCH (16:58)
[2024-06-01] MEDS: ACETAMINOPHEN 325 MG TAB PO PRN (05:38)
[2024-06-01] MEDS: COUGH DROP (SUGAR FREE) LOZ 24 LOZ/1 BOX BUCCAL STA (06:11)
[2024-06-01 06:25] LABS: Hematocrit (blood only) 39.6 % (42.0-52.0); Hemoglobin 13.3 g/dl (14.0-18.0); Mean Corpuscular Hemoglobin 32.1 pg (25.0-34.0); Mean Corpuscular Hgb Conc 33.6 g/dL (32.0-36.0); Mean Corpuscular Volume 95.7 fL (80.0-100.0); Mean Platelet Volume 9.4 fL (9.4-12.4); Platelet Count 221 K/uL (130-400); RDW Coefficient of Variation 12.8 % (11.5-14.5); RDW Standard Deviation 45.3 fL (36.4-46.3); Red Blood Count 4.14 M/uL (4.70-6.10); White Blood Count 7.21 K/ul (4.8-10.8)
[2024-06-01 06:27] LABS: Albumin Globulin Ratio 1.6 (0.9-2); BUN Creatinine Ratio 7.8 (10-20); Bilirubin,Total 0.9 mg/dl (0.2-1.0); Calcium 9.1 mg/dl (8.6-10.3); Creatinine Clr Calc Pharmacy 133.5 ml/min; Globulin 2.5 gm/dl (2.5-4.0); Potassium 4.1 mmol/L (3.5-5.1); Total Protein 6.5 gm/dl (6.0-8.3)
[2024-06-01 06:30] LABS: Prothrombin Time 10.8 Seconds (9.0-12.0)
[2024-06-01] MEDS: THIAMINE HCL 100 MG TAB PO SCH (07:41)
[2024-06-01] MEDS: MULTIVITAMIN TAB PO SCH (07:41)
[2024-06-01] MEDS: FOLIC ACID 1 MG TAB PO SCH (07:41)
[2024-06-01] MEDS: GABAPENTIN 600 MG TAB PO SCH (07:42)
--- NOTE | 2024-06-01 13:46 | Hospitalist Progress Note ---
Date of Service June 01, 2024 Assessment & Plan (1) Alcohol withdrawal: (2) Alcohol use disorder: (3) Asthma: (4) LFT elevation: Plan: Secondary to alcohol misuse Plan Patient with significant alcohol use disorder high risk of complicated withdrawal. Symptoms seem to be controlled with current gabapentin regimen. Continue As needed benzodiazepines Monitor electrolytes Patient has already established care with [facility]. Encouraged him to continue the naltrexone treatment upon discharge. He seemed to think that the neck Truxophyllin gave him significant symptoms of nausea and vomiting. Further history it was really withdrawal symptoms that he was experiencing because he had stopped drinking alcohol and it was not due to the naltrexone. Monitor electrolytes Transition to oral PPI LFTs are improving with alcohol cessation., Does not meet criteria for acute alcohol hepatitis, continue to trend as needed Admission and Anticipated Discharge Date Admission Date: May 31, 2024 Subjective Patient reports feeling significantly improved compared to yesterday. Nausea has improved. Physical Exam Physical Exam: Constitutional: Alert, nontoxic HEENT: Mucous membranes moist. Lungs: Clear to auscultation, decreased, no wheezes rales or rhonchi CV: S1-S2, regular Abdomen: Soft, nontender, nondistended Extremities: No significant edema Neuro: No focal deficits, minimal tremor Psych: Cooperative, normal mood Results & Data Results & Data Vital Signs (Past 12 Hours) Vital Signs Temp Pulse Pulse Resp BP Pulse Ox O2 Del Method 06/01/24 11:08 36.6 C 77 18 109/70 96 Room Air 06/01/24 10:20 95 H 06/01/24 09:55 Room Air 06/01/24 07:25 36.7 C 72 18 134/89 98 Room Air 06/01/24 02:24 36.7 C 104 H 18 135/83 98 Room Air Diagnostic Findings Reviewed imaging, laboratory and diagnostic studies. Pertinent findings as below. Potassium 4.1 AST 159, improved ALT 99 improved
[2024-06-01 20:14] VITALS: RESP 18
[2024-06-02] MEDS: ONDANSETRON INJ 2 MG/ML 2 ML VIAL IV PRN (00:03)
[2024-06-02] MEDS: cloNIDine HCL 0.1 MG TAB PO PRN (00:03)
[2024-06-02 04:23] VITALS: O2SAT 98
[2024-06-02 09:11] LABS: BUN Creatinine Ratio 7.4 (10-20); Calcium 9.6 mg/dl (8.6-10.3); Creatinine Clr Calc Pharmacy 151.2 ml/min; Magnesium 1.9 mg/dl (1.7-2.4); Potassium 4.2 mmol/L (3.5-5.1)
--- NOTE | 2024-06-02 12:02 | Discharge Summary ---
Discharge Summary Date of Service June 02, 2024 Principal Dx & Hospital Course #1 = Principal Diagnosis (1) Alcohol withdrawal: (2) Alcohol use disorder: (3) Asthma: (4) LFT elevation: Secondary to alcohol misuse Plan Patient presented to the emergency room with symptoms of severe alcohol withdrawal as well as alcohol intoxication. Patient was referred for further evaluation. Patient was admitted to the hospital. He was monitored and is placed on gabapentin withdrawal taper protocol. Lorazepam was used as needed for elevated CIWA score. On further history, patient had attempted to withdraw al as an outpatient. He was seen at [facility] where he is given naltrexone and clonidine and Zofran. He thought that the naltrexone was the cause of his nausea and vomiting as he tried to stop drinking and use these medications. He was so nauseated and ill feeling that he started to drink alcohol again. Presented to the emergency room with alcohol level 0.66. The patient did very well with a gabapentin taper. He had minimal symptoms and did not require any significant amounts of as needed Ativan. On the day of discharge his vital signs are stable. He had minimal tremors. Patient reports that he will do outpatient counseling with [facility]. He is not sure he wants to consider restarting the naltrexone or Vivitrol injections. I strongly encouraged him to consider this. Explained to him that his symptoms were not due to the naltrexone but due to the fact that he was in alcohol withdrawal. He states that he is still hesitant but may consider the Vivitrol injections at a later time. His electrolytes is stabilized through his hospitalization. His LFTs improved with his alcohol cessation. He will be discharged home and follow-up with any outpatient providers and counseling centers. Notes For Next Care Provider Continue to encourage outpatient counseling, encourage possible Vivitrol treatment Medication Changes From Visit Gabapentin for another 2 days Naltrexone discontinued Admission HPI Per Admitting Provider This is a 29-year-old male with PMH of alcohol use disorder and asthma who presents from home with worsening tremors and anxiety. Has been drinking every day for years anywhere from 6 beer to approximately a pint of vodka daily. Last drink was last night around 9 pm. Recetly moved back from [facility] with intention to get sober. Was seen at a clinic near the [facility] and prescribed natrexone, clonidine PRN and zofran last week with instruction to taper down alcohol use slowly. Patient has been nauseous and unable to keep pills down to home with recurrent emesis. Denies hematemesis. Also having worsening anxiety, feeling of "pins and needles" in hands and legs which has improved since arrival. Also endorses bruising on megs Endorses intermittent marijuana use. Staying with family who is supportive of sobriety. No F/C, lightheadedness, CP, SOB, abd pain, dysuria. Had diarrhea 1-2x prior to arrival. Admission Exam Per Admitting Provider See H&P Discharge Exam Constitutional: Alert HEENT: Mucous membranes moist. Lungs: Clear to auscultation, decreased, no wheezes rales or rhonchi CV: S1-S2, regular Abdomen: Soft, nontender, nondistended Extremities: No significant edema Neuro: No focal deficits, no significant tremor, no identifiable withdrawal symptoms Psych: Cooperative, normal mood Updated Medication List Medication Instructions Recorded Confirmed Type ondansetron 4 mg disintegrating 4 mg PO Q6H PRN nausea and 02/14/19 05/31/24 Rx tablet vomiting #10 tabs clonidine HCl 0.1 mg tablet 0.1 mg PO TID PRN anxiety/insomina 05/31/24 05/31/24 History naltrexone 50 mg tablet 50 mg PO DAILY 05/31/24 05/31/24 History gabapentin 600 mg tablet 600 mg PO Q12H #4 tabs 06/02/24 Rx multivitamin with folic acid 400 1 tab PO QAM #30 tabs 06/02/24 Rx mcg tablet (Daily-Naomi (with folic acid)) Hospital Stay Data Consultations 05/31/24 11:25 ED Decision to Admit Stat Diagnostic Imagining Performed Reviewed imaging, laboratory and diagnostic studies. Pertinent findings as below. Electrolytes stable Hemoglobin 13.3 Platelets 221 INR 1.0 AST 159, improved ALT 99, improved Total bilirubin 0.9, normal Pending Results Patient Have Any Pending Studies at Discharge: No Discharge Instructions Given to Patient (Per Discharging Provider) Strongly encourage you to follow-up with [facility] Strongly recommend you do not drink any alcohol or beer Total Time Total Time Spent Total Time Spent (In Minutes): 25
[2024-06-02 12:07] VITALS: BP 109/76; PULSE 82; TEMP 98.1
[2024-06-02] MEDS: GABAPENTIN 600 MG TAB PO SCH (12:40)
[2024-06-03 10:47] LABS: 7-Aminoclonaz, Confirm NEGATIVE ng/mL (<25); Hydro-Alp Ur, GC/MS NEGATIVE ng/mL (<25); Hydroxyethylflurazepam, Conf NEGATIVE ng/mL (<50); Hydroxymidazolam Ur, GC/MS NEGATIVE ng/mL (<50); Hydroxytriazolam NEGATIVE ng/mL (<50); Lorazepam, Ur GC/MS NEGATIVE ng/mL (<50); Nordiazepam, Confirm 308 ng/mL (<50); Oxazepam Ur, GC/MS NEGATIVE ng/mL (<50); Temazepam, Confirm 101 ng/mL (<50)
[2024-06-04] MEDS ORDERED: GABAPENTIN 600 MG TAB PO SCH
== END 2024-06-02 13:04 | disposition home or self-care (01) ==
LOC: ED 08:00 → SUATTDRO 11:33 → 2S 11:33 → INTOOBSV 11:33 → 2S 13:22 → 4W 06-01 16:56